=== PATIENT | female | born 1985 | race African-American/Black ===

== ENCOUNTER 2020-11-27 15:37 | Emergency (ER) | payer OTHER ==
[~2020-11-27] VITALS: Ht 167.6 cm; Wt 66.7 kg
--- NOTE | 2020-11-27 16:00 | NUR ---
BIBS FROM HOME TO ER BED 1. AAOX4. NOT IN RESP DISTRESS. AMBULATORY. CAME IN FOR L EYE BLURRED VISION W/ BLACK SPOT AT THE BOTTOM HALF FOR THE PAST 3 DAYS. PT DENIES PAIN. NO DISCHARGE NOTED. VISUAL ACUITY DONE. IS AT THE BEDSIDE FOR STEWART
[2020-11-27] MEDS ORDERED: FLUORESCEIN SODIUM OPHTH 1 EA STRIP ONE (16:04)
--- NOTE | 2020-11-27 16:17 | NUR ---
CALLED DR. BEAN OPHTHALMOLOGY SURGERY ONLY COMES IN ON FRIDAYS. DR. MANE SPEAKING WITH DR. RUBALCAVA [phone]
--- NOTE | 2020-11-27 16:39 | NUR ---
Patient does not wish to proceed with medical care recommended by Dr. Mcdaniel. Patient given information related to possible complications, up to and including , which could occur as a result of leaving the hospital at this time. Patient verbalizes understanding of risks involved due to leaving against medical advice. Patient has signed AMA form.
[2020-11-27 16:40] VITALS: BP 124/79
== END 2020-11-27 16:41 | disposition left against medical advice (07) ==
LOC: ER 15:43
DX: H54.62 Unqualified visual loss, left eye, normal vision right eye (principal); K21.9 Gastro-esophageal reflux disease without esophagitis